=== PATIENT | male | born 1960 | race Caucasian/White ===

== ENCOUNTER 2017-01-20 09:01 | Inpatient (IN) | payer OTHER ==
[2017-01-20] VITALS (18 sets, daily range): BP systolic 94–119; BP diastolic 52–76; PULSE 84–96; RESP 13–27; Ht 177.8 cm; Wt 94.1 kg
[~2017-01-20] VITALS: Ht 177.8 cm; Wt 94.1 kg
[~2017-01-20 09:01] MED LIST: EPHEDrine SULFATE 50 MG/5 ML SYG ONE; VASOPRESSIN 20 UNITS INJ ONE
[2017-01-20] MEDS ORDERED: LISI1TAB8 PO (09:27)
[2017-01-20] MEDS ORDERED: ATOR20TA38 PO (09:27)
[2017-01-20] MEDS ORDERED: OMEP20CA16 PO (09:28)
[2017-01-20] MEDS ORDERED: FAMO20TA18 PO (09:28)
--- NOTE | 2017-01-20 09:51 | HPN ---
Date/Time of Note Date/Time of Note DATE: 01/20/17 TIME: 09:51 Interval H&P Admission Note Pt. seen H&P reviewed: No system changes DOMENICA MIDDLETON Jan 20, 2017 09:51
[2017-01-20] MEDS ORDERED: TRANEXAMIC ACID 1,000 MG in SOD CHLORIDE 0.9% 100 ML IV ONE ×4 (10:00)
[2017-01-20] MEDS ORDERED: CEFAZOLIN 2 GM/50 ML (PMX) 50 ML IVPB SCH (10:00)
[2017-01-20] MEDS ORDERED: MIDAZOLAM 1 MG/ML 2 ML INJ ONE (11:04)
[2017-01-20] MEDS ORDERED: GLYCOPYRROLATE 0.4 MG INJ ONE (11:04)
[2017-01-20] MEDS ORDERED: NEOSTIGMINE 3 MG/3 ML SYRINGE ONE (11:04)
[2017-01-20] MEDS ORDERED: CEFAZOLIN 1 GM INJ ONE (11:04)
[2017-01-20] MEDS ORDERED: PROPOFOL 20 ML ONE (11:04)
[2017-01-20] MEDS ORDERED: FENTAnyl 50 MCG/ML VIAL ONE (11:04)
[2017-01-20] MEDS ORDERED: ROCURONIUM 50 MG INJ ONE (11:04)
[2017-01-20] MEDS ORDERED: DEXAMETHASONE 4 MG/ML 1 ML INJ ONE (11:05)
[2017-01-20] MEDS ORDERED: ROPIVACAINE 0.5 % 30 ML VIAL ONE (11:05)
[2017-01-20] MEDS ORDERED: ONDANSETRON 4 MG INJ ONE (11:05)
[2017-01-20] MEDS ORDERED: POLYMYXIN/BACITRACIN 1L IRRIG ONE (11:12)
[2017-01-20] MEDS ORDERED: FENTAnyl 50 MCG/ML VIAL IV PRN ×3 (11:30)
[2017-01-20] MEDS ORDERED: ALBUTEROL 0.083% (NEB) 2.5 MG/3 ML AMP HHN PRN (11:30)
[2017-01-20] MEDS ORDERED: IPRATROPIUM (NEB) 0.5 MG/2.5 ML AMP HHN PRN (11:30)
[2017-01-20] MEDS ORDERED: hydrALAzine 20 MG INJ IV PRN (11:30)
[2017-01-20] MEDS ORDERED: DIPHENHYDRAMINE 50 MG INJ IV PRN (11:30)
[2017-01-20] MEDS ORDERED: EPHEDrine SULFATE 50 MG/5 ML SYG IV PRN (11:30)
[2017-01-20] MEDS ORDERED: MEPERIDINE 25 MG INJ IV PRN (11:30)
[2017-01-20] MEDS ORDERED: LABETALOL HCL 20MG INJ IV PRN (11:30)
[2017-01-20] MEDS ORDERED: ONDANSETRON 4 MG INJ IV PRN (11:30)
[2017-01-20] MEDS ORDERED: HYDROmorphONE (0.2 MG/ML) 10ML SYG IV PRN ×3 (11:30)
[2017-01-20] MEDS ORDERED: MIDAZOLAM 1 MG/ML 2 ML INJ IV PRN (11:30)
[2017-01-20] MEDS ORDERED: OXYCODONE/ACETAMINOPHEN (5/325) TAB PO PRN ×2 (11:30)
[2017-01-20] MEDS ORDERED: TRIMETHOBENZAMIDE 100 MG/ML VIAL IM PRN (11:30)
[2017-01-20] MEDS ORDERED: PROPOFOL 100 ML ONE (11:44)
[2017-01-20] MEDS ORDERED: BUPIVACAINE 0.5%/EPI (SDV) 30 ML INJ ONE (12:28)
[2017-01-20] MEDS ORDERED: KETOROLAC 30 MG INJ ONE (12:28)
[2017-01-20] MEDS ORDERED: SODIUM CL BACTERIOSTATIC 30 ML INJ ONE (12:28)
[2017-01-20] MEDS ORDERED: BUPIVACAINE 0.25%/EPI (SDV) 30 ML INJ INJ ONE (12:43)
[2017-01-20] MEDS ORDERED: POLYMYXIN/BACITRACIN 1L IRRIG IRR ONE (12:43)
--- NOTE | 2017-01-20 13:01 | RADRPT ---
PROCEDURE: Limited right knee series CLINICAL INDICATION: Pain, knee replacement TECHNIQUE: Single portable AP view of right knee was obtained. COMPARISON: None FINDINGS: Portable AP view of the right knee is submitted for review. The prosthesis is seen stabilizing the p roximal tibia. Prosthetic devices are also seen stabilizing the medial and lateral femoral condyles. IMPRESSION: Postoperative changes as above. RPTAT:AAJJ Physician Alena Date Time Electronically viewed and signed by Erik Nuñez Physician on 01/20/2017 13:01 JOSE RAMON/
--- NOTE | 2017-01-20 13:20 | SIPON ---
Date/Time of Note Date/Time of Note DATE: 01/20/17 TIME: 13:19 Operative Report Preoperative Diagnosis right knee DJD Postoperative Diagnosis same Operation/Procedure Performed Right total knee replacement Surgeon see signature line or assistant Dr. Freddy Landis Second assist: IVAN FREDERICK PA-C Anesthesia: spinal Estimated blood loss: 150 - 200 ml's Transfusion Required none Specimen bone Grafts/Implants DePuy 6 femur, 7 tibia, 8 poly, 41 patella Complications none DOMENICA MIDDLETON Jan 20, 2017 13:20
--- NOTE | 2017-01-20 13:57 | PDOCDIS ---
Discharge Instructions DIAGNOSIS Discharge Diagnosis Status post right total knee replacement CONDITION Patient Condition: Good HOME CARE INSTRUCTIONS: Diet Instructions: Regular ACTIVITY: Activity Restrictions: Slowly Increase Activity Rest between Activity Avoid heavy lifting No Sexual Activity Do not Drive Do not operate Machinery Do not operate Power Tool Avoid Heavy Housework Keep Limb Elevated (2-3 pillows underneath the foot/ankle only. May apply ice to the knee while at rest.) Weight Bearing (Weightbearing as tolerated with use of front wheeled walker.) Bathing Restrictions: Shower (Keep area clean and dry. Do not remove Mepilex dressing until seen by Dr. Diaz on postoperative visit.) FOLLOW UP/APPOINTMENTS Follow-up Plan Follow-up at postoperative appointment given to you at your preoperative visit. IVAN FREDERICK PA-C Jan 20, 2017 13:57
[2017-01-20] MEDS ORDERED: KETOROLAC 15 MG INJ IV PRN (14:00)
[2017-01-20] MEDS ORDERED: SENNA/DOCUSATE NA (8.6MG/50MG) TAB PO PRN (14:00)
[2017-01-20] MEDS ORDERED: NALOXONE (0.4 MG/ML) INJ IV PRN (14:00)
[2017-01-20] MEDS ORDERED: ASPIRIN (EC) 325 MG TAB PO ONE (14:00)
[2017-01-20] MEDS ORDERED: DIPHENHYDRAMINE 50 MG INJ IM PRN (14:00)
[2017-01-20] MEDS ORDERED: oxyCODONE 5 MG TAB PO PRN ×3 (14:00)
[2017-01-20] MEDS ORDERED: BISACODYL 10 MG SUPP PR PRN (14:00)
[2017-01-20] MEDS ORDERED: NA PHOSPHATE/BIPHOS 133 ML ENEMA PR PRN (14:00)
[2017-01-20] MEDS ORDERED: BETHANECHOL 25 MG TAB PO PRN (14:00)
[2017-01-20] MEDS ORDERED: DOCUSATE SODIUM 100 MG CAP PO ONE (14:00)
[2017-01-20] MEDS ORDERED: MAGNESIUM HYDROXIDE 30ML CUP PO PRN (14:00)
[2017-01-20] MEDS ORDERED: ZOLPIDEM 5 MG TAB PO PRN (14:00)
[2017-01-20] MEDS: CEFAZOLIN 1 GM/50 ML (PMX) 50 ML IVPB SCH ×2 (14:11→22:10)
[2017-01-20] MEDS: ONDANSETRON 4 MG INJ IV SCH ×2 (14:33→19:42)
--- NOTE | 2017-01-20 15:06 | OPR ---
Date/Time of Note Date/Time of Note DATE: 01/20/17 TIME: 15:00 Operative Report Procedure Date: Jan 20, 2017 Preoperative Diagnosis Right knee osteoarthritis Postoperative Diagnosis Same Operation/Procedure Performed Right total knee replacement Surgeon see signature line Product Development Ecologist Dr. Freddy Landis Second Product Development Ecologist: IVAN FREDERICK PA-C Anesthesia Type: spinal Estimated Blood Loss: 150 - 200 ml's Transfusion none Specimen Bone Grafts/Implants Size 6 femur, size 7 tibia, 8 mm polyethylene, 41 mm patella DEPUY Tubes/Drains None Complications none Pt Condition Post Procedure: stable Disposition: PACU Indications Patient is a 56-year-old male with advanced osteoarthritis of his right knee Procedure Description Patient was placed supine on the operating room table. Right lower extremity was prepped and draped in usual manner. An anterior approach to the right knee was made. A mid vastus approach was made in the patella displaced laterally without everting it. Advanced osteoarthritis was noted. Using intramedullary alignment, the distal femoral cut was made in 5 of valgus. The femur was measured to be a size 6 from the depuy knee system. The size 6 cutting block was placed in slight external rotation. Anterior posterior and chamfer cuts were made. The notch was cut in the distal femur to accommodate the posterior stabilized femoral component. The PCL was sacrificed. Remnants of the menisci were removed. The tibia was cut using external alignment. The patella was cut using a freehand technique. The tibia was prepared for a size 7 component and slight external rotation. Trials were inserted including a 6 femur, 7 tibia, 41 patella and 8 mm of polyethylene. This resulted in a stable knee from 0-130 with good balance and tracking. X-rays were obtained to confirm alignment. Once satisfactory alignment was confirmed, the trials were removed and the knee was thoroughly irrigated. The knee was injected with Marcaine with epinephrine along with Toradol. Final components were then cemented in place including a 6 femur, 7 tibia, 41 patella. 8 mm of polyethylene were placed to complete the knee replacement. The knee was stable throughout its range of motion with good balance and tracking. The wound was irrigated and closed in layers using #1 Vicryl for arthrotomy and fascia, 2-0 Vicryl for subcutaneous tissue and 3-0 Monocryl for the skin. Patient was transferred to the recovery room in stable condition DOMENICA MIDDLETON Jan 20, 2017 15:06
[2017-01-20] MEDS: SOD CHLORIDE 0.9% 1,000 ML IV SCH (16:05)
--- NOTE | 2017-01-20 18:09 | CONS ---
Date/Time of Note Date/Time of Note DATE: 01/20/17 TIME: 18:05 Assessment/Plan Assessment/Plan Chief Complaint/Hosp Course 1. Right knee arthritis status post right knee replacement postop day #0 Patient ready ambulate with PT Pain control Likely DC home tomorrow 2. Dyslipidemia Resume home statin 3. Hypertension Hold home meds at this time secondary to low blood pressure, resume tomorrow if indicated 4. GERD Continue PPI Problems: Consultation Date/Type/Reason Admit Date/Time Jan 20, 2017 at 09:01 Hx of Present Illness Patient is a 56-year-old male with a history of hypertension, dyslipidemia, GERD and arthritis of the right knee status post right knee replacement today. Patient has no acute complaints at this time and has already ambulated with PT. Constitutional: improved, no complaints Eyes: no complaints ENT: no complaints Respiratory: no complaints Cardiovascular: no complaints Gastrointestinal: no complaints Genitourinary: no complaints Musculoskeletal: no complaints Skin: no complaints Neurologic: no complaints Endocrine: no complaints Lymphatic: no complaints Psychological: nl mood/affect, no complaints Immunologic: no complaints Past Medical History As per HPI Past Surgical History Right knee replacement postop day 0, history of hernia repair Family History Significant Family History: no pertinent family hx Social History Alcohol Use: rarely Smoking Status: Never smoker Drug Use: none Exam/Review of Systems Vital Signs Vitals Vital Signs Date Time Temp Pulse Resp B/P Pulse Ox O2 Delivery O2 Flow Rate FiO2 01/20/17 16:44 97.7 01/20/17 16:05 92 20 113/62 95 Room Air 01/20/17 14:32 2.0 Exam Constitutional: alert, oriented Head: normocephalic Respiratory: clear to auscultation Cardiovascular: regular rate and rhythm Gastrointestinal: soft, No distended Musculoskeletal: nl extremities to inspection Medications Medications Current Medications Sodium Chloride (NS) 1,000 ml @ 80 mls/hr [id number] IV Last administered on t 16:05; Admin Dose 80 MLS/HR; Start 01/20/17 at 13:51 Oxycodone HCl (Roxicodone) 20 mg Q3H PRN PO PAIN LEVEL 8-10; Start 01/20/17 at 14:00 Oxycodone HCl (Roxicodone) 10 mg Q3H PRN PO PAIN LEVEL 4-7; Start 01/20/17 at 14:00 Oxycodone HCl (Roxicodone) 5 mg Q3H PRN PO PAIN LEVEL 1-3; Start 01/20/17 at 14:00 Zolpidem Tartrate (Ambien) 5 mg HS PRN PO INSOMNIA; Start 01/20/17 at 14:00 Ondansetron HCl 4 mg 4 mg Q6H IV Last administered on 01/20/17 14:33; Admin Dose 4 MG; Start 01/20/17 at 14:00; Stop 01/21/17 at 08:01 Cefazolin Sodium (Ancef 1 Gm/50 ml (Pmx)) 50 ml @ 100 mls/hr Q8H IVPB Last administered on 01/20/17 14:11; Admin Dose 100 MLS/HR; Start 01/20/17 at 14: 00; Stop 01/21/17 at 06:29 Aspirin (Ecotrin) 325 mg DAILY PO ; Start 01/21/17 at 09:00 Celecoxib (Celebrex) 100 mg BID PO ; Start 01/21/17 at 09:00 Pantoprazole (Protonix Tab) 40 mg DAILY@06 PO ; Start 01/22/17 at 06:00 Docusate Sodium/ Ferrous Fumarate (Agustina-Sequels) 1 tab BID PO ; Start at 09:00 Docusate Sodium (Colace) 200 mg BID PO ; Start 01/21/17 at 09:00; Stop at 08:59 Simethicone (Mylicon) 80 mg TID PRN PO DISTENSION/GAS/BLOATING; Start at 14:00 Senna/Docusate Sodium (Senokot-S) 2 tab BID PRN PO CONSTIPATION; Start at 14:00 Magnesium Hydroxide (Milk Of Mag) 30 ml HS PRN PO CONSTIPATION; Start at 14:00 Bisacodyl (Dulcolax Supp) 10 mg DAILY PRN NV CONSTIPATION; Start 01/20/17 at 14:00 Sodium Biphosphate/ Sodium Phosphate (Fleet Enema) 133 ml DAILY PRN NV CONSTIPATION; Start 01/20/17 at 14:00 Diphenhydramine HCl (Benadryl) 25 mg Q4H PRN IM ITCHING OR RASH; Start at 14:00 Ketorolac Tromethamine (Toradol) 15 mg Q6 PRN IV PAIN; Start 01/20/17 at 14:00 ; Stop 01/24/17 at 13:59 Naloxone HCl (Narcan) 0.2 mg Q2M PRN IV DECREASED REPIRATORY RATE; Start at 14:00 Atorvastatin Calcium (Lipitor) 20 mg QHS PO ; Start 01/20/17 at 21:00 Famotidine (Pepcid) 20 mg DAILY PO ; Start 01/21/17 at 09:00 YAMILE CHILDERS Jan 20, 2017 18:09
[2017-01-20] MEDS ORDERED: ATORVASTATIN 20 MG TAB PO SCH (21:00)
[2017-01-21] VITALS: BP 115/66; RESP 19
[2017-01-21] MEDS: ONDANSETRON 4 MG INJ IV SCH ×2 (01:25→08:00)
[2017-01-21] MEDS: SOD CHLORIDE 0.9% 1,000 ML IV SCH ×2 (01:28→05:29)
[2017-01-21 02:00] VITALS: BP 122/63; RESP 18
[2017-01-21] MEDS: CEFAZOLIN 1 GM/50 ML (PMX) 50 ML IVPB SCH (05:27)
[2017-01-21 08:27] VITALS: BP 109/69; RESP 18
[2017-01-21] MEDS ORDERED: CELECOXIB 100 MG CAP PO SCH (09:00)
[2017-01-21] MEDS ORDERED: DOCUSATE SODIUM 100 MG CAP PO SCH (09:00)
[2017-01-21] MEDS ORDERED: ASPIRIN (EC) 325 MG TAB PO SCH (09:00)
[2017-01-21] MEDS ORDERED: FAMOTIDINE 20 MG TAB PO SCH (09:00)
[2017-01-21] MEDS ORDERED: FERROUS FUMARATE (SR) TAB PO SCH (09:00)
--- NOTE | 2017-01-21 11:44 | PN ---
Date/Time of Note Date/Time of Note DATE: 01/21/17 TIME: 11:42 Assessment/Plan VTE Prophylaxis VTE Prophylaxis Intervention: ambulation, SCD's, other (Aspirin 325 mg) Lines/Catheters IV Catheter Type (from Nrsg): Saline Lock Bae in Place (from Nrsg): Yes Assessment/Plan Assessment/Plan -Pain Meds as needed -ASA for DVT Prophylaxis x 4 weeks outpatient discussed. -Continue monitoring as outpatient on discharge -Follow-up at scheduled postop outpatient appointment or sooner if there is any issue. -Patient Stable -Discharge to Home with home health Subjective 24 Hr Interval Summary 56-year-old male postop day 1 status post right total knee arthroplasty. No acute overnight events. Patient has initiated physical therapy yesterday was up and walking. Denies any chest pain/tightness or calf pain. Continues to improve. Resting comfortably in bed. Constitutional: no complaints Pain Control: well controlled Exam/Review of Systems Vital Signs Vitals Vital Signs Date Time Temp Pulse Resp B/P Pulse Ox O2 Delivery O2 Flow Rate FiO2 01/21/17 08:27 97.5 76 18 109/69 95 01/20/17 16:05 Room Air 01/20/17 14:32 2.0 Intake and Output 01/20/17 01/20/17 01/21/17 15:00 23:00 07:00 Intake Total 2600 ml 600 ml 1690 ml Output Total 450 ml 300 ml 2200 ml Balance 2150 ml 300 ml -510 ml Exam Free Text/Dictation -No complications with dressing intact. -5/5 Tibialis Anterior, EHL Gastrocnemius/Soleus and Peroneals -Active range of motion is 0-90. -Normal Sensation -Palpable DP/PT, Capillary Refill <2 secs -No Distal Edema -Negative Paul Sign/No calf pain -Toes Freely Movable Constitutional: alert, oriented, well developed IVAN FREDERICK PA-C Jan 21, 2017 11:44
[2017-01-21 13:54] LABS: BASOPHILS % 0.1 % (0.0-2.0); EOSINOPHILS % 0.2 % (0.0-7.0); HEMATOCRIT 35.1 % (42.0-52.0); HEMOGLOBIN 11.9 g/dl (14.0-18.0); LYMPHOCYTES # 1.2 10^3/ul (0.8-2.9); LYMPHOCYTES % 9.2 % (15.0-51.0); MEAN CORPUSCULAR HEMOGLOBIN 30.5 pg (29.0-33.0); MEAN CORPUSCULAR HGB CONC 33.9 g/dl (32.0-37.0); MONOCYTE # 1.3 10^3/ul (0.3-0.9); MONOCYTES % 9.3 % (0.0-11.0); NEUTROPHIL # 10.8 10^3/ul (1.6-7.5); NEUTROPHILS % 80.6 % (39.0-77.0); PLATELET COUNT 330 10^3/UL (140-415); RED CELL DISTRIBUTION WIDTH 12.6 % (11.5-14.5); WHITE BLOOD COUNT 13.5 10^3/ul (4.8-10.8)
[2017-01-21 14:10] LABS: MAGNESIUM 1.9 mg/dl (1.7-2.5)
[2017-01-21 14:11] LABS: CALCIUM 9.2 mg/dl (8.4-10.2); CREATININE 0.76 mg/dl (0.61-1.24); POTASSIUM 3.7 mmol/L (3.5-5.1)
[2017-01-21 15:26] VITALS: BP 94/53; PULSE 80; RESP 20
--- NOTE | 2017-01-21 17:56 | PN ---
Date/Time of Note Date/Time of Note DATE: 01/21/17 TIME: 17:54 Assessment/Plan VTE Prophylaxis VTE Prophylaxis Intervention: other Lines/Catheters IV Catheter Type (from [facility]): Saline Lock Assessment/Plan Chief Complaint/Hosp Course 1. Right knee arthritis status post right knee replacement postop day #1 Discharged home today by orthopedics 2. Dyslipidemia Resume home statin 3. Hypertension Continue home meds 4. GERD Continue PPI Problems: Subjective 24 Hr Interval Summary Constitutional: no complaints Exam/Review of Systems Vital Signs Vitals Vital Signs Date Time Temp Pulse Resp B/P Pulse Ox O2 Delivery O2 Flow Rate FiO2 01/21/17 15:26 80 20 94/53 94/53 01/21/17 08:27 97.5 95 01/20/17 16:05 Room Air 01/20/17 14:32 2.0 Intake and Output 01/20/17 01/20/17 01/21/17 15:00 23:00 07:00 Intake Total 2600 ml 600 ml 1690 ml Output Total 450 ml 300 ml 2200 ml Balance 2150 ml 300 ml -510 ml Exam Constitutional: alert, oriented Respiratory: clear to auscultation Cardiovascular: regular rate and rhythm Gastrointestinal: soft, No distended Musculoskeletal: nl extremities to inspection Results Result Diagram: 01/21/17 1315 01/21/17 1315 Results 24 hrs Laboratory Tests Test 01/21/17 13:15 White Blood Count 13.5 H Red Blood Count 3.90 L Hemoglobin 11.9 L Hematocrit 35.1 L Mean Corpuscular Volume 90.0 Mean Corpuscular Hemoglobin 30.5 Mean Corpuscular Hemoglobin Concent 33.9 Red Cell Distribution Width 12.6 Platelet Count 330 Mean Platelet Volume 9.0 Neutrophils % 80.6 H Lymphocytes % 9.2 L Monocytes % 9.3 Eosinophils % 0.2 Basophils % 0.1 Nucleated Red Blood Cells % 0.0 Neutrophils # 10.8 H Lymphocytes # 1.2 Monocytes # 1.3 H Eosinophils # 0.0 Basophils # 0.0 Nucleated Red Blood Cells # 0.0 Sodium Level 138 Potassium Level 3.7 Chloride Level 100 Carbon Dioxide Level 31 Anion Gap 11 Blood Urea Nitrogen 11 Creatinine 0.76 Glucose Level 88 Hemoglobin A1c 5.7 Calcium Level 9.2 Phosphorus Level 4.0 Magnesium Level 1.9 YAMILE CHILDERS Jan 21, 2017 17:56
[2017-01-22] MEDS ORDERED: PANTOPRAZOLE (EC) 40 MG TAB PO SCH (06:00)
--- NOTE | 2017-01-23 08:12 | DS ---
Date/Time of Note Date/Time of Note DATE: 01/23/17 TIME: 08:11 Discharge Summary Admission/Discharge Info Admit Date/Time Jan 20, 2017 at 09:01 Discharge Date/Time Jan 21, 2017 at 15:55 Discharge Diagnosis Status post right total knee replacement Patient Condition: Good Hospital Course On the day of admission, the patient underwent right total knee arthroplasty Intraoperative complications: None Postoperative complications: None The patient was given prophylactic antibiotics and anticoagulants. On the day of surgery and first postoperative day patient was started on gait training and was taught usual restrictions following knee replacement On postoperative day 1 dressing was clean dry and intact. No complications were observed. On the day of discharge, the wound was clean and healing well; there was no sign of infection. Wound care instructions were discussed with the patient. Discharge Temperature: 97.5 Discharge White Blood Cell Count: 13.5 Discharge Hemoglobin: 11.9 The patient was discharged home with home health. Arrangements were made for visiting nurses and home health/physical therapy. The patient will be seen in office at scheduled postoperative evaluation date given on their preoperative exam. Should patient complain of any problems prior to scheduled postoperative evaluation date, they may call into outpatient clinic to determine if they need to be scheduled at sooner appointment to be seen immediately if needed. Discharge medications: As per medication reconciliation form Diet: Same as preadmission diet. This is Ivan Lau PA-C dictating discharge summary for Dr. Diaz. Home Meds Reported Medications Famotidine* (Famotidine*) 20 Mg Tablet, 20 MG PO DAILY, #30 TAB 01/20/17 Omeprazole* (Omeprazole*) 20 Mg Capsule.dr 20 MG PO DAILY, #30 CAP 01/20/17 Atorvastatin Calcium* (Atorvastatin Calcium*) 20 Mg Tablet, 20 MG PO QHS, #30 TAB 01/20/17 Lisinopril/Hydrochlorothiazide (Lisinopril-Hctz 20-25 mg Tab) 1 Each Tablet, 1 EACH PO DAILY, TAB 01/20/17 Follow-up Plan Follow-up at postoperative appointment given to you at your preoperative visit. Primary Care Provider IVAN Santa PA-C Jan 23, 2017 08:12
== END 2017-01-21 15:55 | disposition home health service (06) | DRG 470 ==
LOC: REC 09:01 → MS1 15:20
PROVIDERS: ADMIT Orthopaedic Surgery; ATTEND Orthopaedic Surgery
PROC: 0SRC069 Replacement of Right Knee Joint with Oxidized Zirconium on Polyethylene Synthetic Substitute, Cemented, Open Approach (ICD-10-PCS; principal; 2017-01-20 10:00)
DX: M17.11 Unilateral primary osteoarthritis, right knee (principal); I10 Essential (primary) hypertension; E78.5 Hyperlipidemia, unspecified; K21.9 Gastro-esophageal reflux disease without esophagitis
CPT/HCPCS: 73560; 80048; 83036; 83735; 84100; 85025; 86850; 86900; 86901; 87081; 87086; 88304; 88311; 97110; 97116; 97163; 97166; 97530; C1776; J0690; J1100; J1885; J2250; J2405; J2710; J2795; J3010; J7030